=== PATIENT | male | born 1970 | race Caucasian/White ===

== ENCOUNTER 2018-01-19 23:40 | Emergency (ER) | payer OTHER, SELFPAY ==
[~2018-01-19] VITALS: Ht 165.1 cm; Wt 80.0 kg
[2018-01-19 23:45] VITALS: BP 143/91
[2018-01-20] MEDS ORDERED: METHOCARBAMOL 750 MG TABLET ONE (00:14)
[2018-01-20] MEDS ORDERED: KETOROLAC 30 MG/1 ML ONE (00:14)
[2018-01-20] MEDS: METHOCARBAMOL 750 MG TABLET PO ONE ×2 (00:19→00:21)
[2018-01-20] MEDS ORDERED: KETOROLAC 30 MG/1 ML IM ONE (00:30)
== END 2018-01-20 00:50 | disposition home or self-care (01) ==
LOC: ED 23:59
DX: M79.622 Pain in left upper arm (principal); M79.621 Pain in right upper arm; M19.90 Unspecified osteoarthritis, unspecified site
CPT/HCPCS: 96372; 99283; J1885

== ENCOUNTER 2019-12-21 09:04 | Outpatient (CLI) | payer OTHER ==
[2019-12-21] MEDS ORDERED: MIDAZOLAM 1 MG/ML, 5ML ONE ×2 (09:51→09:52)
[2019-12-21] MEDS ORDERED: FENTANYL PF 100 MCG/2ML ONE (09:51)
== END 2019-12-21 23:59 | disposition home or self-care (01) ==
LOC: RAD 09:04
PROVIDERS: ATTEND Physician Assistant Surgical
DX: Z11.59 Encounter for screening for other viral diseases (principal); M75.121 Complete rotator cuff tear or rupture of right shoulder, not specified as traumatic; M75.31 Calcific tendinitis of right shoulder; M25.511 Pain in right shoulder
CPT/HCPCS: 36415; 73221; 87635; 99156; 99157; J2250; J3010

== ENCOUNTER 2019-12-27 09:44 | Day surgery (SDC) | payer OTHER ==
[~2019-12-27] VITALS: Ht 165.1 cm; Wt 83.8 kg
[2019-12-27] MEDS ORDERED: LACTATED RINGERS 1,000 ML IV SCH (10:13)
[2019-12-27 10:21] VITALS: BP 158/100
[2019-12-27] MEDS ORDERED: CHLORHEXIDINE 15 ML UDC MM ONE (10:30)
[2019-12-27] MEDS ORDERED: [UNRECOGNIZED DRUG - OTHER] PO (10:54)
[2019-12-27] MEDS ORDERED: FLUO20CA23 PO (10:54)
[2019-12-27] MEDS ORDERED: MELO15TA24 PO (10:54)
[2019-12-27] MEDS ORDERED: LISI5TAB7 PO (10:54)
[2019-12-27] MEDS ORDERED: ONDANSETRON 2MG/ML, 2ML IVPush PRN (11:00)
[2019-12-27] MEDS ORDERED: hydrALAzine 20 MG/ML, 1ML IV PRN (11:00)
[2019-12-27] MEDS ORDERED: FENTANYL PF 100 MCG/2ML IV PRN (11:00)
[2019-12-27] MEDS ORDERED: LABETALOL 5MG/ML, 20ML IV PRN (11:00)
[2019-12-27 11:07] LABS: ALANINE AMINOTRANSFERASE 36 U/L (12-78); ALBUMIN 3.8 g/dL (3.4-5.0); ANION GAP 6 mmol/L (5-15); CALCIUM 9.1 mg/dL (8.5-10.1); CHLORIDE 107 mmol/L (98-107); CREATININE 1.03 mg/dL (0.7-1.3)
[2019-12-27 11:09] LABS: ALKALINE PHOSPHATASE 81 U/L (45-117); BILIRUBIN,TOTAL 0.5 mg/dL (0.2-1.0); TOTAL PROTEIN 7.4 g/dL (6.4-8.2)
[2019-12-27] MEDS ORDERED: FENTANYL PF 100 MCG/2ML ONE (12:01)
[2019-12-27] MEDS ORDERED: PROPOFOL 10 MG/ML, 20ML ONE ×2 (12:01)
[2019-12-27] MEDS ORDERED: KETOROLAC 30 MG/1 ML ONE (14:38)
[2019-12-27] MEDS ORDERED: KETOROLAC 30 MG/1 ML IVPush ONE (15:00)
[2019-12-27] MEDS ORDERED: HYDROmorphone 1 MG/ML, 1ML INJ ONE (15:21)
[2019-12-27] MEDS ORDERED: HYDROmorphone 2 MG/ML, 1ML IVPush PRN ×2 (15:30)
[2019-12-27] MEDS ORDERED: HYDROmorphone 1 MG/ML, 1ML INJ IVPush PRN (15:30)
== END 2019-12-27 16:00 | disposition home or self-care (01) ==
LOC: OUT 09:44 → EDSTATUS 11:30 → OUT 16:00
PROVIDERS: ATTEND Physician Assistant Surgical
DX: M25.511 Pain in right shoulder (principal); M75.31 Calcific tendinitis of right shoulder; M75.51 Bursitis of right shoulder; M25.811 Other specified joint disorders, right shoulder; M19.90 Unspecified osteoarthritis, unspecified site; I10 Essential (primary) hypertension; Z79.899 Other long term (current) drug therapy; Z82.61 Family history of arthritis; Z82.3 Family history of stroke
CPT/HCPCS: 36415; 73221; 80053; J1170; J1885; J2704; J3010; J7120

== ENCOUNTER 2020-07-23 13:39 | Emergency (ER) | payer OTHER ==
[~2020-07-23] VITALS: Ht 165.1 cm; Wt 82.0 kg
[~2020-07-23 13:39] MED LIST: FLUO20CA23 PO; LISI5TAB7 PO; MELO15TA24 PO; [UNRECOGNIZED DRUG - OTHER] PO
--- NOTE | 2020-07-23 13:56 | NUR ---
MD Perdue at bedside for eval.
[2020-07-23] MEDS ORDERED: HYDROmorphone 1 MG/ML, 1ML INJ ONE (13:59)
[2020-07-23] MEDS ORDERED: CEFAZOLIN PMX 1GM/50ML 50 ML ONE (13:59)
[2020-07-23] MEDS ORDERED: HYDROmorphone 2 MG/ML, 1ML IVPush ONE (14:00)
[2020-07-23] MEDS ORDERED: CEFAZOLIN PMX 1GM/50ML 50 ML IVPB ONE (14:00)
[2020-07-23] MEDS ORDERED: DIPH,PERTUSS(ACELL),TET VAC/PF 0.5 ML IM-VACC ONE ×2 (14:00)
[2020-07-23] MEDS ORDERED: LIDOCAINE-MPF 1%, 5ML ONE ×2 (14:22→14:32)
--- NOTE | 2020-07-23 14:23 | NUR ---
TASK RN; PT MEDICATED PER EMAR FOR PAIN, WITH ABX AND TETANUS. PA AT BEDSIDE FOR LAC REPAIR. ON 2L O2 BY NC FOR SUPPORT POST RX
--- NOTE | 2020-07-23 14:35 | NUR ---
this tech attempted to clean pts lac pt stated "it hurts too much stop". irrigation was stomped and PA was notified.
[2020-07-23] MEDS ORDERED: LIDOCAINE-MPF 1%, 5ML INFIL ONE (15:00)
--- NOTE | 2020-07-23 15:17 | NUR ---
AISSATOU Molina at bedside at 1445 to suture wound.
[2020-07-23] MEDS ORDERED: NEOSPORIN OINT. PKT 1 PACKET ONE (15:50)
[2020-07-23 16:12] VITALS: BP 114/74
== END 2020-07-23 16:20 | disposition home or self-care (01) ==
LOC: ED 14:05
DX: S51.812A Laceration without foreign body of left forearm, initial encounter (principal); W22.8XXA Striking against or struck by other objects, initial encounter; Y93.89 Activity, other specified; Y92.009 Unspecified place in unspecified non-institutional (private) residence as the place of occurrence of the external cause; Y99.8 Other external cause status
CPT/HCPCS: 12032; 90471; 90715; 96365; 96375; 99284; J0690; J1170; 99406